=== PATIENT | female | born 1935 | race African-American/Black ===

== ENCOUNTER 2017-12-27 12:25 | Observation (INO) | payer MEDICARE, OTHER ==
[2017-12-27] MEDS: SOD CHLORIDE 0.9% 500 ML IV (13:48)
[2017-12-27] MEDS ORDERED: ONDANSETRON 4 MG INJ IV (14:00)
[2017-12-27] MEDS: DOCUSATE SODIUM 100 MG CAP PO ×2 (14:00→20:48)
[2017-12-27] MEDS: POLYETHYLENE GLYCOL 17 GM PACKET PO (14:00)
[2017-12-27] MEDS ORDERED: ACETAMINOPHEN 325 MG TAB PO (14:00)
[2017-12-27] MEDS ORDERED: LACTULOSE 30ML CUP PO (14:00)
[2017-12-27] MEDS ORDERED: NACL 0.9% 3 ML SYG IV (14:00)
[2017-12-27] MEDS ORDERED: HYDROmorphONE 0.5 MG/0.5 ML SYG IV (14:00)
[2017-12-27] MEDS ORDERED: ALBUTEROL/IPRATROPIUM (NEB) 3 ML AMP HHN (14:00)
[2017-12-27] MEDS ORDERED: HYDROCODONE/APAP (5/325) TAB PO (14:00)
[2017-12-27 14:05] LABS: ADD MAN DIFF? NO
[2017-12-27 14:06] LABS: WHITE BLOOD COUNT 12.3 10^3/ul (4.8-10.8)
[2017-12-27 14:06] LABS: BASOPHIL # 0.1 10^3/ul (0.0-0.1); BASOPHILS % 0.4 % (0.0-2.0); EOSINOPHILS # 0.1 10^3/ul (0.0-0.5); EOSINOPHILS % 0.6 % (0.0-7.0); HEMATOCRIT 42.1 % (37.0-47.0); HEMOGLOBIN 13.8 g/dl (12.0-16.0); LYMPHOCYTES # 2.4 10^3/ul (0.8-2.9); LYMPHOCYTES % 19.3 % (15.0-51.0); MEAN CORPUSCULAR HEMOGLOBIN 28.3 pg (29.0-33.0); MEAN CORPUSCULAR HGB CONC 32.8 g/dl (32.0-37.0); MEAN CORPUSCULAR VOLUME 86.3 fl (82.0-101.0); MEAN PLATELET VOLUME 10.2 fl (7.4-10.4); MONOCYTE # 0.6 10^3/ul (0.3-0.9); MONOCYTES % 4.7 % (0.0-11.0); NEUTROPHIL # 9.2 10^3/ul (1.6-7.5); NEUTROPHILS % 74.5 % (39.0-77.0); PLATELET COUNT 304 10^3/UL (140-415); RED BLOOD COUNT 4.88 10^6/ul (4.20-5.40); RED CELL DISTRIBUTION WIDTH 14.6 % (11.5-14.5)
[2017-12-27 14:13] LABS: ADD UMIC YES; UR ASCORBIC ACID NEGATIVE (NEGATIVE); UR BACTERIA FEW /HPF (NONE SEEN); UR BILIRUBIN (Dip) NEGATIVE (NEGATIVE); UR BLOOD (Dip) 1+ mg/dL (NEGATIVE); UR CLARITY CLOUDY (CLEAR); UR COLOR YELLOW (YELLOW); UR GLUCOSE (Dip) NEGATIVE (NEGATIVE); UR KETONES (Dip) NEGATIVE (NEGATIVE); UR LEUKOCYTE ESTERASE (Dip) 3+ Leu/ul (NEGATIVE); UR MUCUS FEW /HPF (NONE SEEN); UR NITRITE (Dip) NEGATIVE (NEGATIVE); UR RBC 10 /HPF (0-5); UR SPECIFIC GRAVITY (Dip) 1.011 (1.003-1.030); UR SQUAMOUS EPITHELIAL CELL FEW /HPF (FEW); UR TOTAL PROTEIN (Dip) 1+ mg/dl (NEGATIVE); UR UROBILINOGEN (Dip) 2+ mg/dL (NEGATIVE); UR WBC 168 /HPF (0-5)
[2017-12-27] MEDS: MAGNESIUM CITRATE 300 ML BTL PO (14:16)
[2017-12-27 14:26] LABS: INR 0.89; PARTIAL THROMBOPLASTIN TIME 27.8 Sec (25.0-35.0); PROTIME 12.1 Sec (11.9-14.9); PT RATIO 0.9
[2017-12-27 14:29] LABS: ALANINE AMINOTRANSFERASE 17 IU/L (13-69); ALBUMIN 3.7 g/dl (3.3-4.9); ALBUMIN/GLOBULIN RATIO 1.19; ALKALINE PHOSPHATASE 108 IU/L (42-121); ANION GAP 10 (8-16); ASPARTATE AMINO TRANSFERASE 23 IU/L (15-46); BILIRUBIN,INDIRECT 0.6 mg/dl (0-1.1); BILIRUBIN,TOTAL 0.6 mg/dl (0.2-1.3); BLOOD UREA NITROGEN 10 mg/dl (7-20); CALCIUM 9.9 mg/dl (8.4-10.2); CARBON DIOXIDE 26 mmol/L (21-31); CHLORIDE 109 mmol/L (97-110); GLUCOSE 104 mg/dl (70-220); LIPASE 42 U/L (23-300); POTASSIUM 3.5 mmol/L (3.5-5.1); SODIUM 141 mmol/L (135-144); TOTAL PROTEIN 6.8 g/dl (6.1-8.1)
[2017-12-27] MEDS: NA PHOSPHATE/BIPHOS 133 ML ENEMA PR (16:10)
[2017-12-27] MEDS: BENAZEPRIL 10 MG TAB PO (16:11)
[2017-12-27] MEDS: AMLODIPINE 10 MG TAB PO (16:11)
[2017-12-27] MEDS: hydrALAzine 20 MG INJ IV (16:11)
[2017-12-27] MEDS: SOD CHLORIDE 0.9% 1,000 ML IV (16:12)
[2017-12-27] MEDS: ATORVASTATIN 40 MG TAB PO (20:48)
[2017-12-27] MEDS: FAMOTIDINE 20 MG INJ IV (20:48)
[2017-12-28] MEDS: hydrALAzine 20 MG INJ IV (01:46)
[2017-12-28 05:39] LABS: ADD MAN DIFF? NO
[2017-12-28 05:43] LABS: WHITE BLOOD COUNT 15.5 10^3/ul (4.8-10.8)
[2017-12-28 05:43] LABS: BASOPHILS % 0.3 % (0.0-2.0); EOSINOPHILS % 0.1 % (0.0-7.0); HEMATOCRIT 39.7 % (37.0-47.0); LYMPHOCYTES # 2.8 10^3/ul (0.8-2.9); LYMPHOCYTES % 17.9 % (15.0-51.0); MEAN CORPUSCULAR HGB CONC 32.7 g/dl (32.0-37.0); MEAN CORPUSCULAR VOLUME 85.4 fl (82.0-101.0); MEAN PLATELET VOLUME 10.6 fl (7.4-10.4); MONOCYTES % 6.5 % (0.0-11.0); NEUTROPHIL # 11.6 10^3/ul (1.6-7.5); NEUTROPHILS % 74.7 % (39.0-77.0); PLATELET COUNT 322 10^3/UL (140-415); RED BLOOD COUNT 4.65 10^6/ul (4.20-5.40); RED CELL DISTRIBUTION WIDTH 14.7 % (11.5-14.5)
[2017-12-28 06:10] LABS: ANION GAP 9 (8-16); BLOOD UREA NITROGEN 10 mg/dl (7-20); CALCIUM 9.5 mg/dl (8.4-10.2); CARBON DIOXIDE 29 mmol/L (21-31); CHLORIDE 109 mmol/L (97-110); CREATININE 0.68 mg/dl (0.44-1.00); GLUCOSE 97 mg/dl (70-220); MAGNESIUM 2.6 mg/dl (1.7-2.5); PHOSPHORUS 2.1 mg/dl (2.5-4.9); POTASSIUM 3.6 mmol/L (3.5-5.1); SODIUM 143 mmol/L (135-144)
[2017-12-28 07:26] LABS: HEMOGLOBIN A1C 5.2 % (0-5.9)
[2017-12-28] MEDS: BENAZEPRIL 10 MG TAB PO (08:25)
[2017-12-28] MEDS: DOCUSATE SODIUM 100 MG CAP PO ×2 (08:25→20:58)
[2017-12-28] MEDS: AMLODIPINE 10 MG TAB PO (08:26)
[2017-12-28] MEDS: TAMSULOSIN (SR) 0.4 MG CAP PO (08:26)
[2017-12-28] MEDS: POLYETHYLENE GLYCOL 17 GM PACKET PO (08:26)
[2017-12-28] MEDS: ATORVASTATIN 40 MG TAB PO (20:58)
[2017-12-28] MEDS: FAMOTIDINE 20 MG INJ IV (20:58)
[2017-12-29] MEDS: POLYETHYLENE GLYCOL 17 GM PACKET PO (09:00)
[2017-12-29] MEDS: DOCUSATE SODIUM 100 MG CAP PO (09:06)
[2017-12-29] MEDS: BENAZEPRIL 10 MG TAB PO (09:06)
[2017-12-29] MEDS: AMLODIPINE 10 MG TAB PO (09:06)
[2017-12-29] MEDS: TAMSULOSIN (SR) 0.4 MG CAP PO (09:06)
== END 2017-12-29 16:36 | disposition home or self-care (01) ==
LOC: E/R 12:25 → PP2 13:37
DX: K59.00 Constipation, unspecified (principal); N39.0 Urinary tract infection, site not specified; I11.0 Hypertensive heart disease with heart failure; I50.9 Heart failure, unspecified; E66.01 Morbid (severe) obesity due to excess calories; Z68.38 Body mass index [BMI] 38.0-38.9, adult; Z86.73 Personal history of transient ischemic attack (TIA), and cerebral infarction without residual deficits; Z23 Encounter for immunization
CPT/HCPCS: 36415; 80048; 80053; 81001; 83036; 83690; 83735; 84100; 85025; 85610; 85730; 90686; 99285-25; G0378

== ENCOUNTER 2018-05-03 10:49 | Inpatient (IN) | payer MEDICARE, OTHER ==
[2018-05-03] MEDS: KETOROLAC 15 MG INJ IV (11:43)
[2018-05-03 11:54] LABS: ADD MAN DIFF? NO
[2018-05-03 11:55] LABS: WHITE BLOOD COUNT 13.2 10^3/ul (4.8-10.8)
[2018-05-03 11:55] LABS: BASOPHIL # 0.1 10^3/ul (0.0-0.1); BASOPHILS % 0.5 % (0.0-2.0); EOSINOPHILS # 0.1 10^3/ul (0.0-0.5); EOSINOPHILS % 0.4 % (0.0-7.0); HEMATOCRIT 41.2 % (37.0-47.0); HEMOGLOBIN 13.5 g/dl (12.0-16.0); LYMPHOCYTES % 15.4 % (15.0-51.0); MEAN CORPUSCULAR HEMOGLOBIN 27.7 pg (29.0-33.0); MEAN CORPUSCULAR HGB CONC 32.8 g/dl (32.0-37.0); MEAN CORPUSCULAR VOLUME 84.4 fl (82.0-101.0); MEAN PLATELET VOLUME 10.1 fl (7.4-10.4); MONOCYTE # 0.5 10^3/ul (0.3-0.9); MONOCYTES % 4.1 % (0.0-11.0); NEUTROPHIL # 10.5 10^3/ul (1.6-7.5); NEUTROPHILS % 79.1 % (39.0-77.0); PLATELET COUNT 362 10^3/UL (140-415); RED BLOOD COUNT 4.88 10^6/ul (4.20-5.40); RED CELL DISTRIBUTION WIDTH 15.4 % (11.5-14.5)
[2018-05-03 13:09] LABS: ALANINE AMINOTRANSFERASE 7 IU/L (13-69); ALBUMIN 3.8 g/dl (3.3-4.9); ALKALINE PHOSPHATASE 113 IU/L (42-121); ANION GAP 8 (5-13); ASPARTATE AMINO TRANSFERASE 17 IU/L (15-46); BILIRUBIN,INDIRECT 0.1 mg/dl (0-1.1); BILIRUBIN,TOTAL 0.1 mg/dl (0.2-1.3); BLOOD UREA NITROGEN 15 mg/dl (7-20); CALCIUM 10.5 mg/dl (8.4-10.2); CARBON DIOXIDE 30 mmol/L (21-31); CHLORIDE 104 mmol/L (97-110); CREATININE 0.84 mg/dl (0.44-1.00); GLUCOSE 123 mg/dl (70-220); LIPASE 52 U/L (23-300); POTASSIUM 3.5 mmol/L (3.5-5.1); SODIUM 142 mmol/L (135-144)
[2018-05-03 13:10] LABS: ALBUMIN/GLOBULIN RATIO 1.18
[2018-05-03 13:56] LABS: URINE BLOOD (Dip) POC 2+ (NEGATIVE); URINE GLUCOSE (Dip) POC Negative (NEGATIVE); URINE KETONES (Dip) POC Negative (NEGATIVE); URINE LEUKOCYTE EST (Dip) POC 2+ (NEGATIVE); URINE NITRITE (Dip) POC Positive (NEGATIVE); URINE TOTAL PROTEIN POC Trace (NEGATIVE)
[2018-05-03 14:12] LABS: ADD UMIC YES; UR ASCORBIC ACID NEGATIVE (NEGATIVE); UR BACTERIA FEW /HPF (NONE SEEN); UR BILIRUBIN (Dip) NEGATIVE (NEGATIVE); UR BLOOD (Dip) 2+ mg/dL (NEGATIVE); UR CLARITY TURBID (CLEAR); UR COLOR YELLOW (YELLOW); UR GLUCOSE (Dip) NEGATIVE (NEGATIVE); UR KETONES (Dip) NEGATIVE (NEGATIVE); UR LEUKOCYTE ESTERASE (Dip) 3+ Leu/ul (NEGATIVE); UR MUCUS FEW /HPF (NONE SEEN); UR NITRITE (Dip) POSITIVE (NEGATIVE); UR NONSQUAMOUS EPITHELIAL CELL 5 /HPF (NONE SEEN); UR RBC 14 /HPF (0-5); UR SPECIFIC GRAVITY (Dip) 1.012 (1.003-1.030); UR SQUAMOUS EPITHELIAL CELL FEW /HPF (FEW); UR TOTAL PROTEIN (Dip) 1+ mg/dl (NEGATIVE); UR UROBILINOGEN (Dip) NEGATIVE (NEGATIVE); UR WBC > 182 /HPF (0-5)
[2018-05-03] MEDS: SODIUM CHLORIDE 0.9% 1L BAG IV* (14:44)
[2018-05-03] MEDS: CEFEPIME 2GM/50 ML (PMX) 50 ML IVPB (14:44)
[2018-05-03] MEDS ORDERED: ACETAMINOPHEN 325 MG TAB PO ×2 (15:30→18:00)
[2018-05-03] MEDS ORDERED: ONDANSETRON 4 MG INJ IV ×2 (15:30→18:00)
[2018-05-03] MEDS ORDERED: morphine 4 MG/ML VIAL IV (18:00)
[2018-05-03] MEDS ORDERED: DOCUSATE SODIUM 100 MG CAP PO (18:00)
[2018-05-03] MEDS ORDERED: BISACODYL (EC) 5 MG TAB PO (18:00)
[2018-05-03] MEDS: ENOXAPARIN 30 MG/0.3 ML SYG SC (18:12)
[2018-05-03 18:42] LABS: LACTIC ACID 1.7 mmol/L (0.5-2.0)
[2018-05-03] MEDS: ATORVASTATIN 20 MG TAB PO (20:28)
[2018-05-03] MEDS: DOCUSATE SODIUM 100 MG CAP PO (20:28)
[2018-05-03] MEDS: FAMOTIDINE 20 MG TAB PO (20:33)
[2018-05-03] MEDS: SOD CHLORIDE 0.9% 1,000 ML IV (23:49)
[2018-05-03] MEDS: PIPER-TAZO 3.375 GM IV (PMX) 100 ML IVPB (23:49)
[2018-05-04] MEDS: PIPER-TAZO 3.375 GM IV (PMX) 100 ML IVPB ×4 (05:52→23:31)
[2018-05-04 07:21] LABS: ADD MAN DIFF? NO
[2018-05-04 07:24] LABS: BASOPHILS % 0.3 % (0.0-2.0); EOSINOPHILS # 0.1 10^3/ul (0.0-0.5); EOSINOPHILS % 0.7 % (0.0-7.0); HEMATOCRIT 37.5 % (37.0-47.0); HEMOGLOBIN 11.9 g/dl (12.0-16.0); LYMPHOCYTES # 1.4 10^3/ul (0.8-2.9); MEAN CORPUSCULAR HEMOGLOBIN 27.1 pg (29.0-33.0); MEAN CORPUSCULAR HGB CONC 31.7 g/dl (32.0-37.0); MEAN CORPUSCULAR VOLUME 85.4 fl (82.0-101.0); MEAN PLATELET VOLUME 10.3 fl (7.4-10.4); MONOCYTE # 1.2 10^3/ul (0.3-0.9); MONOCYTES % 8.1 % (0.0-11.0); NEUTROPHIL # 12.4 10^3/ul (1.6-7.5); NEUTROPHILS % 81.3 % (39.0-77.0); PLATELET COUNT 337 10^3/UL (140-415); RED BLOOD COUNT 4.39 10^6/ul (4.20-5.40)
[2018-05-04 07:24] LABS: WHITE BLOOD COUNT 15.3 10^3/ul (4.8-10.8)
[2018-05-04 07:50] LABS: ALANINE AMINOTRANSFERASE 8 IU/L (13-69); ALBUMIN 3.3 g/dl (3.3-4.9); ALKALINE PHOSPHATASE 105 IU/L (42-121); ANION GAP 7 (5-13); ASPARTATE AMINO TRANSFERASE 20 IU/L (15-46); BILIRUBIN,INDIRECT 0.4 mg/dl (0-1.1); BILIRUBIN,TOTAL 0.4 mg/dl (0.2-1.3); BLOOD UREA NITROGEN 12 mg/dl (7-20); CALCIUM 9.9 mg/dl (8.4-10.2); CARBON DIOXIDE 28 mmol/L (21-31); CHLORIDE 107 mmol/L (97-110); CREATININE 0.72 mg/dl (0.44-1.00); GLUCOSE 109 mg/dl (70-220); POTASSIUM 3.1 mmol/L (3.5-5.1); SODIUM 142 mmol/L (135-144); TOTAL PROTEIN 6.3 g/dl (6.1-8.1)
[2018-05-04] MEDS: POLYETHYLENE GLYCOL 17 GM PACKET PO (08:59)
[2018-05-04] MEDS: ENOXAPARIN 30 MG/0.3 ML SYG SC (08:59)
[2018-05-04] MEDS: FAMOTIDINE 20 MG TAB PO ×2 (09:00→20:55)
[2018-05-04] MEDS: AMLODIPINE 10 MG TAB PO (09:00)
[2018-05-04] MEDS: DOCUSATE SODIUM 100 MG CAP PO ×2 (09:00→20:55)
[2018-05-04] MEDS: BENAZEPRIL 10 MG TAB PO (09:00)
[2018-05-04] MEDS: POTASSIUM CHLORIDE 20 MEQ POWDER FOR ORAL SOLN PO (11:50)
[2018-05-04] MEDS: SOD CHLORIDE 0.9% 1,000 ML IV ×2 (12:48→16:21)
[2018-05-04] MEDS: ATORVASTATIN 20 MG TAB PO (20:55)
[2018-05-04] MEDS ORDERED: VANCOMYCIN IV PER PHARMACY XX (21:30)
[2018-05-05] MEDS: VANCOMYCIN HCL 1.5 GM in SOD CHLORIDE 0.9% 250 ML IVPB (00:04)
[2018-05-05] MEDS: PIPER-TAZO 3.375 GM IV (PMX) 100 ML IVPB ×2 (06:18→12:38)
[2018-05-05 06:39] LABS: ANION GAP 10 (5-13); BLOOD UREA NITROGEN 9 mg/dl (7-20); CALCIUM 9.4 mg/dl (8.4-10.2); CARBON DIOXIDE 24 mmol/L (21-31); CHLORIDE 109 mmol/L (97-110); GLUCOSE 95 mg/dl (70-220); POTASSIUM 3.5 mmol/L (3.5-5.1); SODIUM 143 mmol/L (135-144)
[2018-05-05] MEDS: AMLODIPINE 10 MG TAB PO (09:05)
[2018-05-05] MEDS: DOCUSATE SODIUM 100 MG CAP PO ×2 (09:05→21:13)
[2018-05-05] MEDS: FAMOTIDINE 20 MG TAB PO ×2 (09:05→21:13)
[2018-05-05] MEDS: BENAZEPRIL 10 MG TAB PO (09:06)
[2018-05-05] MEDS: ENOXAPARIN 30 MG/0.3 ML SYG SC (09:08)
[2018-05-05] MEDS: POLYETHYLENE GLYCOL 17 GM PACKET PO (09:08)
[2018-05-05] MEDS: VANCOMYCIN 750 MG (PMX) 250 ML IVPB (13:26)
[2018-05-05] MEDS: SOD CHLORIDE 0.9% 1,000 ML IV (16:33)
[2018-05-05] MEDS: ATORVASTATIN 20 MG TAB PO (21:13)
[2018-05-06] MEDS: LEVOFLOXACIN 500 MG TAB PO (05:30)
[2018-05-06 05:50] LABS: ADD MAN DIFF? NO
[2018-05-06] MEDS: SOD CHLORIDE 0.9% 1,000 ML IV ×2 (06:11→20:06)
[2018-05-06 06:14] LABS: BASOPHIL # 0.1 10^3/ul (0.0-0.1); BASOPHILS % 0.4 % (0.0-2.0); EOSINOPHILS # 0.2 10^3/ul (0.0-0.5); EOSINOPHILS % 0.9 % (0.0-7.0); HEMATOCRIT 37.2 % (37.0-47.0); HEMOGLOBIN 12.1 g/dl (12.0-16.0); LYMPHOCYTES # 1.7 10^3/ul (0.8-2.9); LYMPHOCYTES % 10.2 % (15.0-51.0); MEAN CORPUSCULAR HEMOGLOBIN 27.6 pg (29.0-33.0); MEAN CORPUSCULAR HGB CONC 32.5 g/dl (32.0-37.0); MEAN CORPUSCULAR VOLUME 84.9 fl (82.0-101.0); MEAN PLATELET VOLUME 10.4 fl (7.4-10.4); MONOCYTE # 1.2 10^3/ul (0.3-0.9); MONOCYTES % 6.9 % (0.0-11.0); NEUTROPHIL # 13.6 10^3/ul (1.6-7.5); NEUTROPHILS % 81.1 % (39.0-77.0); PLATELET COUNT 352 10^3/UL (140-415); RED BLOOD COUNT 4.38 10^6/ul (4.20-5.40); RED CELL DISTRIBUTION WIDTH 15.1 % (11.5-14.5)
[2018-05-06 06:14] LABS: WHITE BLOOD COUNT 16.8 10^3/ul (4.8-10.8)
[2018-05-06 06:26] LABS: INR 1.05; PARTIAL THROMBOPLASTIN TIME 31.1 Sec (23.0-35.0); PROTIME 13.8 Sec (11.9-14.9); PT RATIO 1.1
[2018-05-06 06:35] LABS: ANION GAP 10 (5-13); BLOOD UREA NITROGEN 7 mg/dl (7-20); CALCIUM 9.9 mg/dl (8.4-10.2); CARBON DIOXIDE 27 mmol/L (21-31); CHLORIDE 107 mmol/L (97-110); CREATININE 0.67 mg/dl (0.44-1.00); GLUCOSE 79 mg/dl (70-220); POTASSIUM 3.4 mmol/L (3.5-5.1); SODIUM 144 mmol/L (135-144)
[2018-05-06] MEDS ORDERED: CEFAZOLIN 1 GM INJ (07:00)
[2018-05-06] MEDS: POLYETHYLENE GLYCOL 17 GM PACKET PO (09:00)
[2018-05-06] MEDS: BENAZEPRIL 10 MG TAB PO (09:45)
[2018-05-06] MEDS: DOCUSATE SODIUM 100 MG CAP PO ×2 (09:46→20:31)
[2018-05-06] MEDS: AMLODIPINE 10 MG TAB PO (09:46)
[2018-05-06] MEDS: FAMOTIDINE 20 MG TAB PO ×2 (09:46→20:32)
[2018-05-06] MEDS ORDERED: PROPOFOL 20 ML (11:41)
[2018-05-06] MEDS ORDERED: NEOSTIGMINE 3 MG/3 ML SYRINGE (11:41)
[2018-05-06] MEDS ORDERED: ROCURONIUM 50 MG INJ (11:41)
[2018-05-06] MEDS ORDERED: FENTAnyl 50 MCG/ML VIAL (11:41)
[2018-05-06] MEDS ORDERED: LIDOCAINE 2% (SDV) 5 ML INJ (11:41)
[2018-05-06] MEDS ORDERED: MIDAZOLAM 1 MG/ML 2 ML INJ (11:41)
[2018-05-06] MEDS ORDERED: GLYCOPYRROLATE 0.4 MG INJ (11:41)
[2018-05-06] MEDS ORDERED: DEXAMETHASONE 4 MG/ML 5 ML INJ (12:58)
[2018-05-06] MEDS ORDERED: ONDANSETRON 4 MG INJ (12:58)
[2018-05-06] MEDS ORDERED: HALOPERIDOL 5 MG INJ IV (14:30)
[2018-05-06] MEDS ORDERED: hydrALAzine 20 MG INJ IV (14:30)
[2018-05-06] MEDS ORDERED: FENTAnyl 50 MCG/ML VIAL IV ×3 (14:30)
[2018-05-06] MEDS ORDERED: KETOROLAC 30 MG INJ IV (14:30)
[2018-05-06] MEDS ORDERED: DIPHENHYDRAMINE 50 MG INJ IV (14:30)
[2018-05-06] MEDS ORDERED: EPHEDrine SULFATE 50 MG/5 ML SYG IV (14:30)
[2018-05-06] MEDS ORDERED: ONDANSETRON 4 MG INJ IV (14:30)
[2018-05-06] MEDS ORDERED: LABETALOL HCL 20MG INJ IV (14:30)
[2018-05-06] MEDS ORDERED: ALBUTEROL 0.083% (NEB) 2.5 MG/3 ML AMP HHN (14:30)
[2018-05-06] MEDS ORDERED: morphine (1 MG/ML) 10ML SYRINGE IV (14:30)
[2018-05-06] MEDS ORDERED: MEPERIDINE 25 MG INJ IV (14:30)
[2018-05-06] MEDS ORDERED: HYDROmorphONE 1 MG/5 ML IV SYRINGE IV ×3 (14:30)
[2018-05-06] MEDS ORDERED: METOCLOPRAMIDE 10 MG INJ IV (14:30)
[2018-05-06] MEDS ORDERED: MIDAZOLAM 1 MG/ML 2 ML INJ IV (14:30)
[2018-05-06] MEDS: POTASSIUM CHLORIDE (SR) 20 MEQ TAB PO (15:39)
[2018-05-06] MEDS: ATORVASTATIN 20 MG TAB PO (20:32)
[2018-05-07 05:24] LABS: ADD MAN DIFF? NO
[2018-05-07 05:37] LABS: WHITE BLOOD COUNT 16.6 10^3/ul (4.8-10.8)
[2018-05-07 05:37] LABS: BASOPHILS % 0.2 % (0.0-2.0); HEMATOCRIT 34.5 % (37.0-47.0); HEMOGLOBIN 11.3 g/dl (12.0-16.0); LYMPHOCYTES # 1.4 10^3/ul (0.8-2.9); LYMPHOCYTES % 8.1 % (15.0-51.0); MEAN CORPUSCULAR HEMOGLOBIN 27.7 pg (29.0-33.0); MEAN CORPUSCULAR HGB CONC 32.8 g/dl (32.0-37.0); MEAN CORPUSCULAR VOLUME 84.6 fl (82.0-101.0); MEAN PLATELET VOLUME 10.4 fl (7.4-10.4); MONOCYTE # 0.7 10^3/ul (0.3-0.9); NEUTROPHIL # 14.5 10^3/ul (1.6-7.5); NEUTROPHILS % 86.9 % (39.0-77.0); PLATELET COUNT 353 10^3/UL (140-415); RED BLOOD COUNT 4.08 10^6/ul (4.20-5.40); RED CELL DISTRIBUTION WIDTH 15.4 % (11.5-14.5)
[2018-05-07 06:09] LABS: ANION GAP 8 (5-13); BLOOD UREA NITROGEN 13 mg/dl (7-20); CALCIUM 9.9 mg/dl (8.4-10.2); CARBON DIOXIDE 25 mmol/L (21-31); CHLORIDE 109 mmol/L (97-110); CREATININE 0.83 mg/dl (0.44-1.00); GLUCOSE 166 mg/dl (70-220); POTASSIUM 3.8 mmol/L (3.5-5.1); SODIUM 142 mmol/L (135-144)
[2018-05-07] MEDS: LEVOFLOXACIN 500 MG TAB PO (06:32)
[2018-05-07] MEDS: DOCUSATE SODIUM 100 MG CAP PO ×2 (08:53→20:55)
[2018-05-07] MEDS: FAMOTIDINE 20 MG TAB PO ×2 (08:53→20:55)
[2018-05-07] MEDS: AMLODIPINE 10 MG TAB PO (08:54)
[2018-05-07] MEDS: BENAZEPRIL 10 MG TAB PO (08:54)
[2018-05-07] MEDS: POLYETHYLENE GLYCOL 17 GM PACKET PO (08:54)
[2018-05-07] MEDS: SOD CHLORIDE 0.9% 1,000 ML IV (09:47)
[2018-05-07] MEDS: ATORVASTATIN 20 MG TAB PO (20:55)
[2018-05-08] MEDS: SOD CHLORIDE 0.9% 1,000 ML IV ×2 (00:34→15:22)
[2018-05-08] MEDS: LEVOFLOXACIN 500 MG TAB PO (06:03)
[2018-05-08 06:15] LABS: ADD MAN DIFF? NO
[2018-05-08 06:20] LABS: BASOPHIL # 0.1 10^3/ul (0.0-0.1); BASOPHILS % 0.4 % (0.0-2.0); EOSINOPHILS % 0.1 % (0.0-7.0); HEMATOCRIT 33.8 % (37.0-47.0); HEMOGLOBIN 10.9 g/dl (12.0-16.0); LYMPHOCYTES # 2.4 10^3/ul (0.8-2.9); LYMPHOCYTES % 18.9 % (15.0-51.0); MEAN CORPUSCULAR HEMOGLOBIN 27.3 pg (29.0-33.0); MEAN CORPUSCULAR HGB CONC 32.2 g/dl (32.0-37.0); MEAN CORPUSCULAR VOLUME 84.7 fl (82.0-101.0); MEAN PLATELET VOLUME 10.2 fl (7.4-10.4); MONOCYTE # 1.1 10^3/ul (0.3-0.9); MONOCYTES % 8.5 % (0.0-11.0); NEUTROPHILS % 71.5 % (39.0-77.0); PLATELET COUNT 334 10^3/UL (140-415); RED BLOOD COUNT 3.99 10^6/ul (4.20-5.40); RED CELL DISTRIBUTION WIDTH 15.5 % (11.5-14.5)
[2018-05-08 06:20] LABS: WHITE BLOOD COUNT 12.6 10^3/ul (4.8-10.8)
[2018-05-08 06:34] LABS: ANION GAP 7 (5-13); BLOOD UREA NITROGEN 11 mg/dl (7-20); CALCIUM 9.9 mg/dl (8.4-10.2); CARBON DIOXIDE 25 mmol/L (21-31); CHLORIDE 111 mmol/L (97-110); CREATININE 0.74 mg/dl (0.44-1.00); GLUCOSE 90 mg/dl (70-220); SODIUM 143 mmol/L (135-144)
[2018-05-08] MEDS: DOCUSATE SODIUM 100 MG CAP PO ×2 (08:47→21:02)
[2018-05-08] MEDS: AMLODIPINE 10 MG TAB PO (08:48)
[2018-05-08] MEDS: FAMOTIDINE 20 MG TAB PO ×2 (08:48→21:03)
[2018-05-08] MEDS: BENAZEPRIL 10 MG TAB PO (08:48)
[2018-05-08] MEDS: POLYETHYLENE GLYCOL 17 GM PACKET PO (08:49)
[2018-05-08] MEDS ORDERED: morphine LIQ (10 MG/5 ML) CUP PO (15:30)
[2018-05-08] MEDS: ATORVASTATIN 20 MG TAB PO (21:02)
[2018-05-08] MEDS: BALSAM PERU/CASTOR OIL 60 GM TUBE TOP (21:03)
[2018-05-08] MEDS: TRIMETHOPRIM/SULFAMETHOX (DS) TAB PO (21:03)
[2018-05-09] MEDS: SOD CHLORIDE 0.9% 1,000 ML IV ×2 (05:53→20:34)
[2018-05-09 06:09] LABS: ADD MAN DIFF? NO
[2018-05-09 06:15] LABS: BASOPHIL # 0.1 10^3/ul (0.0-0.1); BASOPHILS % 0.6 % (0.0-2.0); EOSINOPHILS # 0.1 10^3/ul (0.0-0.5); EOSINOPHILS % 1.1 % (0.0-7.0); HEMATOCRIT 34.5 % (37.0-47.0); HEMOGLOBIN 11.2 g/dl (12.0-16.0); LYMPHOCYTES # 3.1 10^3/ul (0.8-2.9); LYMPHOCYTES % 29.3 % (15.0-51.0); MEAN CORPUSCULAR HEMOGLOBIN 27.6 pg (29.0-33.0); MEAN CORPUSCULAR HGB CONC 32.5 g/dl (32.0-37.0); MONOCYTE # 0.8 10^3/ul (0.3-0.9); MONOCYTES % 7.8 % (0.0-11.0); NEUTROPHIL # 6.4 10^3/ul (1.6-7.5); NEUTROPHILS % 60.3 % (39.0-77.0); PLATELET COUNT 368 10^3/UL (140-415); RED BLOOD COUNT 4.06 10^6/ul (4.20-5.40); RED CELL DISTRIBUTION WIDTH 15.7 % (11.5-14.5)
[2018-05-09 06:15] LABS: WHITE BLOOD COUNT 10.5 10^3/ul (4.8-10.8)
[2018-05-09 06:36] LABS: ANION GAP 11 (5-13); BLOOD UREA NITROGEN 12 mg/dl (7-20); CALCIUM 9.5 mg/dl (8.4-10.2); CARBON DIOXIDE 26 mmol/L (21-31); CHLORIDE 105 mmol/L (97-110); CREATININE 0.72 mg/dl (0.44-1.00); GLUCOSE 76 mg/dl (70-220); SODIUM 142 mmol/L (135-144)
[2018-05-09] MEDS: TRIMETHOPRIM/SULFAMETHOX (DS) TAB PO ×2 (08:42→20:29)
[2018-05-09] MEDS: DOCUSATE SODIUM 100 MG CAP PO ×2 (08:43→20:30)
[2018-05-09] MEDS: FAMOTIDINE 20 MG TAB PO ×2 (08:43→20:29)
[2018-05-09] MEDS: AMLODIPINE 10 MG TAB PO (08:44)
[2018-05-09] MEDS: BENAZEPRIL 10 MG TAB PO (08:45)
[2018-05-09] MEDS: BALSAM PERU/CASTOR OIL 60 GM TUBE TOP ×2 (08:46→20:33)
[2018-05-09] MEDS: POLYETHYLENE GLYCOL 17 GM PACKET PO (08:49)
[2018-05-09] MEDS: ATORVASTATIN 20 MG TAB PO (20:29)
[2018-05-10 05:49] LABS: ADD MAN DIFF? NO
[2018-05-10 05:53] LABS: WHITE BLOOD COUNT 9.6 10^3/ul (4.8-10.8)
[2018-05-10 05:53] LABS: BASOPHIL # 0.1 10^3/ul (0.0-0.1); BASOPHILS % 0.7 % (0.0-2.0); EOSINOPHILS # 0.2 10^3/ul (0.0-0.5); EOSINOPHILS % 1.9 % (0.0-7.0); HEMATOCRIT 36.4 % (37.0-47.0); HEMOGLOBIN 11.9 g/dl (12.0-16.0); LYMPHOCYTES # 3.2 10^3/ul (0.8-2.9); LYMPHOCYTES % 33.8 % (15.0-51.0); MEAN CORPUSCULAR HEMOGLOBIN 27.7 pg (29.0-33.0); MEAN CORPUSCULAR HGB CONC 32.7 g/dl (32.0-37.0); MEAN CORPUSCULAR VOLUME 84.7 fl (82.0-101.0); MEAN PLATELET VOLUME 9.8 fl (7.4-10.4); MONOCYTE # 0.5 10^3/ul (0.3-0.9); MONOCYTES % 5.2 % (0.0-11.0); NEUTROPHIL # 5.5 10^3/ul (1.6-7.5); NEUTROPHILS % 57.4 % (39.0-77.0); PLATELET COUNT 387 10^3/UL (140-415); RED CELL DISTRIBUTION WIDTH 15.6 % (11.5-14.5)
[2018-05-10 06:19] LABS: ANION GAP 8 (5-13); BLOOD UREA NITROGEN 11 mg/dl (7-20); CALCIUM 9.7 mg/dl (8.4-10.2); CARBON DIOXIDE 26 mmol/L (21-31); CHLORIDE 107 mmol/L (97-110); CREATININE 0.76 mg/dl (0.44-1.00); GLUCOSE 68 mg/dl (70-220); POTASSIUM 3.8 mmol/L (3.5-5.1); SODIUM 141 mmol/L (135-144)
[2018-05-10] MEDS: POLYETHYLENE GLYCOL 17 GM PACKET PO ×2 (08:23→11:50)
[2018-05-10] MEDS: DOCUSATE SODIUM 100 MG CAP PO ×2 (08:23→20:49)
[2018-05-10] MEDS: TRIMETHOPRIM/SULFAMETHOX (DS) TAB PO ×2 (08:24→20:49)
[2018-05-10] MEDS: FAMOTIDINE 20 MG TAB PO ×2 (08:24→20:49)
[2018-05-10] MEDS: AMLODIPINE 10 MG TAB PO (08:24)
[2018-05-10] MEDS: BENAZEPRIL 10 MG TAB PO (08:24)
[2018-05-10] MEDS: BALSAM PERU/CASTOR OIL 60 GM TUBE TOP ×2 (08:30→20:49)
[2018-05-10] MEDS: SOD CHLORIDE 0.9% 1,000 ML IV (10:04)
[2018-05-10] MEDS: ATORVASTATIN 20 MG TAB PO (20:49)
[2018-05-11 05:36] LABS: ADD MAN DIFF? NO
[2018-05-11 05:47] LABS: WHITE BLOOD COUNT 13.3 10^3/ul (4.8-10.8)
[2018-05-11 05:47] LABS: BASOPHIL # 0.1 10^3/ul (0.0-0.1); BASOPHILS % 0.6 % (0.0-2.0); EOSINOPHILS # 0.2 10^3/ul (0.0-0.5); EOSINOPHILS % 1.6 % (0.0-7.0); HEMATOCRIT 36.4 % (37.0-47.0); HEMOGLOBIN 11.8 g/dl (12.0-16.0); LYMPHOCYTES # 2.4 10^3/ul (0.8-2.9); LYMPHOCYTES % 18.2 % (15.0-51.0); MEAN CORPUSCULAR HEMOGLOBIN 27.3 pg (29.0-33.0); MEAN CORPUSCULAR HGB CONC 32.4 g/dl (32.0-37.0); MEAN CORPUSCULAR VOLUME 84.3 fl (82.0-101.0); MEAN PLATELET VOLUME 9.7 fl (7.4-10.4); MONOCYTE # 0.7 10^3/ul (0.3-0.9); MONOCYTES % 5.5 % (0.0-11.0); NEUTROPHIL # 9.7 10^3/ul (1.6-7.5); NEUTROPHILS % 72.9 % (39.0-77.0); PLATELET COUNT 417 10^3/UL (140-415); RED BLOOD COUNT 4.32 10^6/ul (4.20-5.40); RED CELL DISTRIBUTION WIDTH 15.1 % (11.5-14.5)
[2018-05-11 06:11] LABS: ANION GAP 10 (5-13); BLOOD UREA NITROGEN 12 mg/dl (7-20); CARBON DIOXIDE 25 mmol/L (21-31); CHLORIDE 106 mmol/L (97-110); CREATININE 0.76 mg/dl (0.44-1.00); GLUCOSE 78 mg/dl (70-220); POTASSIUM 3.7 mmol/L (3.5-5.1); SODIUM 141 mmol/L (135-144)
[2018-05-11] MEDS: AMLODIPINE 10 MG TAB PO (08:47)
[2018-05-11] MEDS: BENAZEPRIL 10 MG TAB PO (08:47)
[2018-05-11] MEDS: DOCUSATE SODIUM 100 MG CAP PO ×2 (08:48→21:02)
[2018-05-11] MEDS: TRIMETHOPRIM/SULFAMETHOX (DS) TAB PO ×2 (08:48→21:02)
[2018-05-11] MEDS: POLYETHYLENE GLYCOL 17 GM PACKET PO ×2 (08:48→08:54)
[2018-05-11] MEDS: FAMOTIDINE 20 MG TAB PO ×2 (08:48→21:02)
[2018-05-11] MEDS: BALSAM PERU/CASTOR OIL 60 GM TUBE TOP (08:49)
[2018-05-11] MEDS: ATORVASTATIN 20 MG TAB PO (21:02)
[2018-05-12 05:52] LABS: ADD MAN DIFF? NO
[2018-05-12 05:53] LABS: WHITE BLOOD COUNT 13.4 10^3/ul (4.8-10.8)
[2018-05-12 05:53] LABS: BASOPHIL # 0.1 10^3/ul (0.0-0.1); BASOPHILS % 0.6 % (0.0-2.0); EOSINOPHILS # 0.2 10^3/ul (0.0-0.5); EOSINOPHILS % 1.1 % (0.0-7.0); HEMATOCRIT 37.5 % (37.0-47.0); HEMOGLOBIN 12.3 g/dl (12.0-16.0); LYMPHOCYTES % 22.2 % (15.0-51.0); MEAN CORPUSCULAR HEMOGLOBIN 27.5 pg (29.0-33.0); MEAN CORPUSCULAR HGB CONC 32.8 g/dl (32.0-37.0); MEAN CORPUSCULAR VOLUME 83.9 fl (82.0-101.0); MEAN PLATELET VOLUME 9.8 fl (7.4-10.4); MONOCYTE # 0.7 10^3/ul (0.3-0.9); MONOCYTES % 5.2 % (0.0-11.0); NEUTROPHIL # 9.4 10^3/ul (1.6-7.5); PLATELET COUNT 432 10^3/UL (140-415); RED BLOOD COUNT 4.47 10^6/ul (4.20-5.40); RED CELL DISTRIBUTION WIDTH 15.6 % (11.5-14.5)
[2018-05-12] MEDS: BALSAM PERU/CASTOR OIL 60 GM TUBE TOP ×2 (05:59→09:19)
[2018-05-12 06:52] LABS: ANION GAP 15 (5-13); BLOOD UREA NITROGEN 16 mg/dl (7-20); CALCIUM 10.1 mg/dl (8.4-10.2); CARBON DIOXIDE 24 mmol/L (21-31); CHLORIDE 102 mmol/L (97-110); CREATININE 0.94 mg/dl (0.44-1.00); GLUCOSE 64 mg/dl (70-220); POTASSIUM 4.1 mmol/L (3.5-5.1); SODIUM 141 mmol/L (135-144)
[2018-05-12] MEDS: FAMOTIDINE 20 MG TAB PO (09:18)
[2018-05-12] MEDS: TRIMETHOPRIM/SULFAMETHOX (DS) TAB PO (09:18)
[2018-05-12] MEDS: AMLODIPINE 10 MG TAB PO (09:18)
[2018-05-12] MEDS: BENAZEPRIL 10 MG TAB PO (09:18)
[2018-05-12] MEDS: DOCUSATE SODIUM 100 MG CAP PO (09:18)
[2018-05-12] MEDS: POLYETHYLENE GLYCOL 17 GM PACKET PO (09:18)
== END 2018-05-12 14:20 | disposition home health service (06) | DRG 660 ==
LOC: E/R 10:49 → PP2 15:26
PROVIDERS: Internal Medicine
PROC: 0TC78ZZ Extirpation of Matter from Left Ureter, Via Natural or Artificial Opening Endoscopic (ICD-10-PCS; principal; 2018-05-06 12:22)
PROC: 0T778DZ Dilation of Left Ureter with Intraluminal Device, Via Natural or Artificial Opening Endoscopic (ICD-10-PCS; 2018-05-06 12:22)
DX: N10 Acute pyelonephritis (principal); G82.20 Paraplegia, unspecified; N13.2 Hydronephrosis with renal and ureteral calculous obstruction; E83.52 Hypercalcemia; I69.365 Other paralytic syndrome following cerebral infarction, bilateral; L89.312 Pressure ulcer of right buttock, stage 2; I10 Essential (primary) hypertension; E78.5 Hyperlipidemia, unspecified; K59.00 Constipation, unspecified; B96.20 Unspecified Escherichia coli [E. coli] as the cause of diseases classified elsewhere; E87.6 Hypokalemia; N28.1 Cyst of kidney, acquired; K80.20 Calculus of gallbladder without cholecystitis without obstruction; Z91.19 Patient's noncompliance with other medical treatment and regimen; Z74.01 Bed confinement status
CPT/HCPCS: 36415; 71045; 71250; 74018; 74176; 74430; 80048; 80053; 81001; 81003; 83605; 83690; 85025; 85610; 85730; 87040; 87086; 88300; 93306; 96374; 96375; 99285-25